=== PATIENT | male | born 1970 | race African-American/Black ===

== ENCOUNTER 2021-05-27 02:25 | Inpatient (IN) | payer MEDICAID, OTHER ==
[~2021-05-27] VITALS: Ht 190.5 cm; Wt 129.3 kg
[2021-05-27] MEDS ORDERED: MORPHINE SULFATE 4 MG/ML CPJ (NOT FOR IM USE) IV STA (03:01)
[2021-05-27] MEDS ORDERED: ONDANSETRON HCL 4MG/2ML INJ IV STA (03:01)
[2021-05-27] MEDS ORDERED: FUROSEMIDE 40MG/4ML VIAL IV ONE (03:15)
[2021-05-27] MEDS ORDERED: NITROGLYCERIN OINT 1GM/INCH UDPKT TD ONE (03:15)
[2021-05-27] MEDS ORDERED: ASPIRIN 81MG TABLET PO ONE (03:15)
[2021-05-27 03:23] LABS: BASOPHILS % 0.8 % (0.0-2.0); EOSINOPHILS % 3.6 % (0.0-5.0); HEMATOCRIT. 42.7 % (42.0-52.0); HEMOGLOBIN. 13.9 g/dL (14.0-18.0); LYMPHOCYTES % 24.4 % (20.0-50.0); MEAN CORPUSCULAR HEMOGLOBIN 26.6 pg (28.0-32.0); MEAN PLATELET VOLUME 8.5 fl (7.4-10.4); MONOCYTES % 6.8 % (2.0-8.0); NEUTROPHILS % 64.4 % (40.0-76.0); PLATELET 250 x1000/uL (130-400); RED BLOOD CELL COUNT 5.21 mill/uL (4.7-6.1); RED CELL DISTRIBUTION WIDTH 16.1 % (11.6-14.6)
[2021-05-27 03:34] LABS: CHLORIDE 106 mEq/L (98-107)
[2021-05-27] MEDS ORDERED: LABETALOL 5MG/ML SYR 20 MG/4 ML SYRINGE IV ONE (04:00)
[2021-05-27] MEDS ORDERED: HYDRALAZINE 20MG/ML VIAL IV PRN ×2 (09:45→17:45)
[2021-05-27] MEDS ORDERED: LOSARTAN POTASSIUM 100 MG TABLET PO NR (09:45)
[2021-05-27 11:59] LABS: CLARITY URINE CLEAR (CLEAR); COLOR URINE DARK YELLOW (YELLOW); KETONES URINE TRACE (NEGATIVE); LEUKOCYTE ESTERASE URINE NEGATIVE (NEGATIVE); NITRITE URINE NEGATIVE (NEGATIVE); OCCULT BLOOD URINE NEGATIVE (NEGATIVE); PH URINE 5.5 (4.5-8.0); PROTEIN URINE 3+ (NEGATIVE)
[2021-05-27 12:11] LABS: *BENZODIAZEPINES SCREEN URINE PRESUMTIVE POSITIVE (NEGATIVE); *COCAINE SCREEN URINE NEGATIVE (NEGATIVE); CANNABINOID URINE SCREEN NEGATIVE (NEGATIVE); PHENCYCLIDINE URINE SCREEN NEGATIVE (NEGATIVE)
[2021-05-27 12:12] LABS: *AMPHETAMINES SCREEN URINE PRESUMTIVE POSITIVE (NEGATIVE); *BARBITURATES SCREEN URINE NEGATIVE (NEGATIVE); METHADONE URINE SCREEN NEGATIVE (NEGATIVE); OPIATES URINE SCREEN PRESUMTIVE POSITIVE (NEGATIVE)
[2021-05-27 13:00] VITALS: BP 158/111
[2021-05-27] MEDS ORDERED: NALOXONE HCL 0.4MG/ML VIAL IV PRN (14:15)
[2021-05-27] MEDS ORDERED: HYDROCODONE/ACETAMINOPHEN 5/325MG TABLET PO PRN (14:15)
[2021-05-27] MEDS ORDERED: HYDRALAZINE 20MG/ML VIAL ONE (14:16)
[2021-05-27 15:51] VITALS: BP 158/111
[2021-05-27 16:00] VITALS: BP 160/104
[2021-05-27] MEDS ORDERED: POTA-205 MT (16:05)
[2021-05-27] MEDS ORDERED: AMLODIPINE 5MG TABLET PO NR (16:45)
[2021-05-27] MEDS ORDERED: TOPUD MT (17:52)
[2021-05-27] MEDS ORDERED: PRED10TA MT (17:54)
[2021-05-27] MEDS ORDERED: APIX5TAB PO (17:54)
[2021-05-27] MEDS ORDERED: FURO40TA5 MT (17:56)
[2021-05-27] MEDS ORDERED: ISOS30TA12 MT (17:58)
[2021-05-27] MEDS ORDERED: ALBU90AE2 (17:59)
[2021-05-27] MEDS ORDERED: ALLO100T MT (18:00)
[2021-05-27] MEDS ORDERED: CARV25TA47 MT (18:02)
[2021-05-27] MEDS ORDERED: CLON0.1T PO (18:04)
[2021-05-27] MEDS ORDERED: FLUT1AER INH (18:05)
[2021-05-27] MEDS ORDERED: GABA-532 PO (18:06)
[2021-05-27] MEDS ORDERED: HYDR-4135 PO (18:08)
[2021-05-27] MEDS ORDERED: LISI40TA13 PO (18:09)
[2021-05-27] MEDS ORDERED: LORA-250 MT (18:11)
[2021-05-27] MEDS ORDERED: NITR0.4T49 SL (18:12)
[2021-05-27] MEDS ORDERED: OMEP20CA14 MT (18:13)
[2021-05-27] MEDS ORDERED: SPIR25TA6 MT (18:14)
[2021-05-27 19:10] VITALS: BP 160/101
== END 2021-05-27 20:05 | disposition short-term general hospital (02) | DRG 194 ==
LOC: ER 02:25 → 7EST 05:25 → EDBEDREQ 05:32 → EDBEDREQTM 05:32
PROVIDERS: ADMIT Internal Medicine; ATTEND Internal Medicine
DX: I11.0 Hypertensive heart disease with heart failure (principal); R07.89 Other chest pain; I50.9 Heart failure, unspecified; Z86.16 Personal history of COVID-19; Z95.810 Presence of automatic (implantable) cardiac defibrillator; R09.02 Hypoxemia
CPT/HCPCS: 36415; 71045; 80053; 80305; 81003; 83605; 83880; 84484; 85025; 85379; 93005; 99291; J0360; J1940; J2270; J2405; J3490

== ENCOUNTER 2025-01-29 15:27 | Inpatient (IN) | payer MEDICAID, OTHER ==
[~2025-01-29] VITALS: Ht 190.5 cm; Wt 152.9 kg
[~2025-01-29 15:27] MED LIST: ALBU90AE3; ALLO100T MT; APIX5TAB PO; CARV25TA47 MT; CLON0.1T PO; FLUT1AER INH; FURO40TA5 MT; GABA-1180 PO; HYDR50TA40 PO; ISOS30TA12 MT; LISI40TA21 PO; LORA-250 MT; NITR0.4T49 SL; OMEP20CA14 MT; POTA-205 MT; PRED10TA MT; SPIR25TA6 MT; TOPUD MT
[2025-01-29 15:30] VITALS: O2SAT 94
[2025-01-29] MEDS: ASPIRIN 325MG EC TABLET PO ONE (16:05)
[2025-01-29] MEDS: NITROGLYCERIN 0.4MG TABLET SL SL ONE (16:05)
[2025-01-29 16:24] LABS: BASOPHILS % 0.6 % (0.0-2.0); EOSINOPHILS % 0.5 % (0.0-5.0); HEMATOCRIT. 47.0 % (42.0-52.0); HEMOGLOBIN. 15.4 g/dL (14.0-18.0); LYMPHOCYTES % 32.3 % (20.0-50.0); MEAN PLATELET VOLUME 7.7 fl (7.4-10.4); MONOCYTES % 7.6 % (2.0-8.0); NEUTROPHILS % 59.0 % (40.0-76.0); PLATELET 241 x1000/uL (130-400); RED BLOOD CELL COUNT 5.35 mill/uL (4.7-6.1); RED CELL DISTRIBUTION WIDTH 15.5 % (11.6-14.6)
[2025-01-29 16:33] LABS: CREATININE 1.8 mg/dL (0.6-1.3)
[2025-01-29 16:34] LABS: PROTEIN TOTAL 6.8 g/dL (6.0-8.3); UREA NITROGEN BLOOD 20 mg/dL (9-23)
[2025-01-29 16:35] LABS: ASPARTATE AMINOTRANSFERASE 46 IU/L (<34)
[2025-01-29 16:36] LABS: BILIRUBIN DIRECT 0.2 mg/dL (<=3.0); BILIRUBIN TOTAL 0.6 mg/dL (0.1-1.0)
[2025-01-29 16:48] LABS: TROPONIN I HIGH SENSITIVITY 103 ng/L (3.0-53)
[2025-01-29] MEDS: FUROSEMIDE 40MG/4ML VIAL IVP ONE (17:10)
[2025-01-29 17:50] LABS: INFLUENZA TYPE A Presumptive Negative (Pres. Neg.)
[2025-01-29 17:52] LABS: INFLUENZA TYPE B Presumptive Negative (Pres. Neg.)
[2025-01-29 20:00] VITALS: BP 157/107; PULSE 81; RESP 17; TEMP 36.3; TEMP 36.3068; O2SAT 98
[2025-01-29] MEDS ORDERED: ACETAMINOPHEN 325MG TABLET PO PRN ×2 (20:30)
[2025-01-29] MEDS ORDERED: DOCUSATE SODIUM 100MG CAPSULE PO PRN (20:30)
[2025-01-29] MEDS ORDERED: DEXTROSE 50% WATER 50ML SYRINGE IV PRN (20:30)
[2025-01-29] MEDS ORDERED: ONDANSETRON HCL 4MG/2ML INJ IV PRN (20:30)
[2025-01-29] MEDS ORDERED: HYDRALAZINE 20MG/ML VIAL IV PRN (20:30)
[2025-01-29] MEDS ORDERED: GUAIFENESIN 200MG/10ML SUGAR FREE UDC PO PRN (20:30)
[2025-01-29] MEDS ORDERED: IPRATROPIUM/ALBUTEROL 0.5-3(2.5)MG/3ML NEB HHN PRN (20:30)
[2025-01-29] MEDS ORDERED: LORAZEPAM 0.5MG TABLET PO PRN (20:30)
[2025-01-29] MEDS: BLOOD SUGAR DIAGNOSTIC STRIP TEST SCH (21:00)
[2025-01-29] MEDS: ENOXAPARIN 150MG/ML SYR SUBCUT SCH (21:57)
[2025-01-29] MEDS: FUROSEMIDE 40MG/4ML VIAL IVP SCH (22:03)
[2025-01-29] MEDS: TRAMADOL 50MG TABLET PO PRN (22:06)
[2025-01-29] MEDS: CLONIDINE 0.1MG TABLET PO PRN (22:10)
[2025-01-29] MEDS ORDERED: EMPA10TA PO (22:41)
[2025-01-29] MEDS ORDERED: IOHEXOL-350 100 ML BOTTLE ONE (22:47)
[2025-01-29 23:34] LABS: CLARITY URINE CLEAR (CLEAR); COLOR URINE YELLOW (YELLOW); GLUCOSE URINE 2+ (NEGATIVE); KETONES URINE NEGATIVE (NEGATIVE); LEUKOCYTE ESTERASE URINE NEGATIVE (NEGATIVE); NITRITE URINE NEGATIVE (NEGATIVE); OCCULT BLOOD URINE NEGATIVE (NEGATIVE); PH URINE 5.5 (4.5-8.0); PROTEIN URINE 2+ (NEGATIVE); SPECIFIC GRAVITY URINE 1.018 (1.005-1.030); UROBILINOGEN URINE 0.2 E.U./dL (0.2-1.0)
[2025-01-29 23:53] LABS: *AMPHETAMINES SCREEN URINE PRESUMPTIVE POSITIVE (NEGATIVE)
[2025-01-29 23:54] LABS: *BARBITURATES SCREEN URINE NEGATIVE (NEGATIVE); *BENZODIAZEPINES SCREEN URINE NEGATIVE (NEGATIVE); RBC URINE NONE SEEN /hpf (0-2); WBC URINE 0-2 /hpf (0-2)
[2025-01-29 23:55] LABS: *COCAINE SCREEN URINE NEGATIVE (NEGATIVE); BACTERIA URINE TRACE; CANNABINOID URINE SCREEN NEGATIVE (NEGATIVE); ECSTASY MDMA SCREEN URINE NEGATIVE (NEGATIVE); METHADONE URINE SCREEN NEGATIVE (NEGATIVE); OPIATES URINE SCREEN NEGATIVE (NEGATIVE); PHENCYCLIDINE URINE SCREEN NEGATIVE (NEGATIVE); SQUAMOUS EPITHELIAL CELL URINE NONE SEEN /lpf (RARE/1+)
[2025-01-29 23:58] LABS: INR 1.0
[2025-01-30] VITALS: BP_SYST 137; BP_SYST 144; BP_DIAS 108; BP_DIAS 96; PULSE 87; RESP 17; TEMP 36.4; O2SAT 98
[2025-01-30 00:02] LABS: TROPONIN I HIGH SENSITIVITY 88 ng/L (3.0-53)
[2025-01-30 04:00] VITALS: BP 145/96; PULSE 78; RESP 18; TEMP 36.4; O2SAT 98
[2025-01-30] MEDS ORDERED: INFLUENZA VACCINE 05/PF 0.5 ML SYRINGE IM ONE (06:30)
[2025-01-30 07:33] LABS: BASOPHILS % 0.6 % (0.0-2.0); EOSINOPHILS % 1.2 % (0.0-5.0); HEMATOCRIT. 46.7 % (42.0-52.0); HEMOGLOBIN. 15.7 g/dL (14.0-18.0); LYMPHOCYTES % 47.9 % (20.0-50.0); MEAN PLATELET VOLUME 8.4 fl (7.4-10.4); MONOCYTES % 7.8 % (2.0-8.0); NEUTROPHILS % 42.5 % (40.0-76.0); PLATELET 238 x1000/uL (130-400); RED BLOOD CELL COUNT 5.40 mill/uL (4.7-6.1); RED CELL DISTRIBUTION WIDTH 15.3 % (11.6-14.6)
[2025-01-30 07:43] LABS: CREATININE 1.7 mg/dL (0.6-1.3); UREA NITROGEN BLOOD 21.0 mg/dL (9-23)
[2025-01-30 08:00] VITALS: BP 152/107; PULSE 85; RESP 20; TEMP 35.9; O2SAT 99
[2025-01-30 10:33] LABS: TROPONIN I HIGH SENSITIVITY 80 ng/L (3.0-53)
[2025-01-30] MEDS: ALLOPURINOL 100 MG TABLET PO SCH (11:01)
[2025-01-30] MEDS: ISOSORBIDE MONONITRATE 30MG TABLET SR 24HR PO SCH (11:01)
[2025-01-30] MEDS: SPIRONOLACTONE 25MG TABLET PO SCH (11:02)
[2025-01-30] MEDS: ENOXAPARIN 150MG/ML SYR SUBCUT SCH (11:04)
[2025-01-30] MEDS ORDERED: SPIRONOLACTONE 25MG TABLET PO SCH (11:15)
[2025-01-30] MEDS ORDERED: ALLOPURINOL 100 MG TABLET PO SCH (11:15)
[2025-01-30 12:00] VITALS: BP 142/91; PULSE 87; RESP 20; TEMP 35.9; O2SAT 99
[2025-01-30] MEDS: EMPAGLIFLOZIN 10MG TABLET PO SCH (14:12)
[2025-01-30] MEDS: LISINOPRIL 40MG TABLET PO SCH (14:13)
[2025-01-30 16:00] VITALS: BP 136/81; PULSE 87; RESP 20; TEMP 35.9; O2SAT 99
[2025-01-30 20:00] VITALS: BP 100/68; PULSE 74; RESP 18; TEMP 36.9; O2SAT 98
[2025-01-30] MEDS ORDERED: CARVEDILOL 12.5MG TABLET PO SCH (21:00)
[2025-01-30] MEDS: HYDRALAZINE HCL 50MG TABLET PO SCH (21:12)
[2025-01-31] VITALS: BP 116/76; PULSE 79; RESP 18; TEMP 36.8; O2SAT 97
[2025-01-31 04:00] VITALS: BP 126/92; PULSE 82; RESP 18; TEMP 37.1; O2SAT 95
[2025-01-31 08:00] VITALS: BP 137/91; PULSE 78; RESP 18; TEMP 36.3; O2SAT 99
[2025-01-31] MEDS ORDERED: EMPA10TA PO (11:38)
[2025-01-31] MEDS ORDERED: SPIR25TA6 MT (11:38)
[2025-01-31] MEDS ORDERED: FURO-151 PO ×2 (11:38→11:41)
[2025-01-31 12:00] VITALS: BP 123/83; PULSE 73; RESP 18; TEMP 36.6; O2SAT 98
[2025-01-31] MEDS ORDERED: AMIODARONE HCL 900 MG in DEXT 5% WATER 482 ML IV SCH (13:00)
[2025-01-31 13:46] VITALS: BP 123/83; PULSE 73; RESP 18; TEMP 97.8
== END 2025-01-31 14:14 | disposition home or self-care (01) | DRG 194 ==
LOC: ER 15:27 → 5WST 17:52 → EDBEDREQ 17:56 → EDBEDREQTM 17:56
PROVIDERS: ADMIT Internal Medicine; ATTEND Internal Medicine
DX: I13.0 Hypertensive heart and chronic kidney disease with heart failure and stage 1 through stage 4 chronic kidney disease, or unspecified chronic kidney disease (principal); I21.A1 Myocardial infarction type 2; N17.9 Acute kidney failure, unspecified; I50.23 Acute on chronic systolic (congestive) heart failure; N18.9 Chronic kidney disease, unspecified; E66.01 Morbid (severe) obesity due to excess calories; F15.10 Other stimulant abuse, uncomplicated; E11.69 Type 2 diabetes mellitus with other specified complication; E11.22 Type 2 diabetes mellitus with diabetic chronic kidney disease; G47.33 Obstructive sleep apnea (adult) (pediatric); Z86.711 Personal history of pulmonary embolism; Z95.810 Presence of automatic (implantable) cardiac defibrillator; Z68.41 Body mass index [BMI] 40.0-44.9, adult; Z79.51 Long term (current) use of inhaled steroids
CPT/HCPCS: 36415; 71045; 71275; 80048; 80076; 80305; 81003; 82962; 83036; 83735; 83880; 84484; 84550; 85025; 85379; 87426; 87804; 93005; 93306; 96374; 99285; A4606; J0360; J1650; J1938; Q9967